=== PATIENT | female | born 1950 | race Caucasian/White ===

== ENCOUNTER 2016-09-02 15:14 | Inpatient (IN) | payer OTHER ==
[2016-09-02 16:08] VITALS: BMI 31.1
--- NOTE | 2016-09-02 17:28 | HP ---
CIWA Score - CIWA Score Nausea/Vomitin Muscle Tremors: 2 Anxiety: 2 Agitation: 2 Paroxysmal Sweats: 3 Orientation: 0-Oriented Tacttile Disturbances: 0-None Auditory Disturbances: 0-None Visual Disturbances: 0-None Headache: 2-Mild CIWA-Ar Total Score: 14 Admission ROS BHS - HPI Chief Complaint: MY DAUGHTER BROUGHT ME HERE BECAUSE I WAS DRINKING Allergies/Adverse Reactions: Allergies Allergy/AdvReac Type Severity Reaction Status Date / Time No Known Allergies Allergy Verified 09/02/16 13:36 History of Present Illness: 65 Y/O WOMAN WITH 15 YRS OF ALCOHOLISM PRESENTS WITH DAUGHTER FOR DETOX. SHE REPORTS LAST TREATMENT ABOUT A YEAR AGO IN [place]. Exam Limitations: No Limitations - Ebola screening Have you traveled outside of the country in the last 21 days: No Have you had contact with anyone from an Ebola affected area: No Have you been sick,other than usual withdrawal symptoms: No Do you have a fever: No - Review of Systems Constitutional: Loss of Appetite, Changes in sleep EENT: reports: Blurred Vision Respiratory: reports: Cough Cardiac: reports: Lightheadedness GI: reports: Poor Appetite, Abdominal cramping : reports: No Symptoms Reported Musculoskeletal: reports: Muscle Pain Integumentary: reports: No Symptoms Reported Neuro: reports: Headache Endocrine: reports: No Symptoms Reported Hematology: reports: No Symptoms Reported Psychiatric: reports: Anxious, Depressed Other Systems: Reviewed and Negative Patient History - Patient Medical History Hx Anemia: No Hx Asthma: No Hx Chronic Obstructive Pulmonary Disease (COPD): Yes Hx Cancer: No Hx Cardiac Disorders: No Hx Congestive Heart Failure: No Hx Hypertension: Yes Hx Hypercholesterolemia: No Hx Pacemaker: No HX Cerebrovascular Accident: No Hx Seizures: No Hx Dementia: No Hx Diabetes: No Hx Gastrointestinal Disorders: No Hx Liver Disease: Yes (HEPATOMEGALY) Hx Genitourinary Disorders: No Hx Sexually Transmitted Disorders: No Hx Renal Disease (ESRD): No Hx Thyroid Disease: No Hx Human Immunodeficiency Virus (HIV): No Hx Hepatitis C: No Hx Depression: Yes (on med) Hx Suicide Attempt: No Hx Schizophrenia: No - Patient Surgical History Past Surgical History: Yes Hx Abdominal Surgery: Yes Hx Orthopedic Surgery: Yes (FX RT ANKLE-PINS) Hx Hysterectomy: Yes (PARTIAL) Other Surgical History: Partial hysterectomy Anesthesia Reaction: No - PPD History Previous Implant?: Yes Implanted On Prior R Admission?: Yes Date: 01/09/12 Results: 0 mm PPD to be Administered?: Yes - Smoking Cessation Smoking history: Current every day smoker Have you smoked in the past 12 months: Yes Aproximately how many cigarettes per day: 20 Hx Chewing Tobacco Use: No Initiated information on smoking cessation: Yes 'Breaking Loose' booklet given: 09/02/16 Family Disease History - Family Disease History Family Disease History: Diabetes: Mother, Heart Disease: Father Admission Physical Exam [facility] - Vital Signs Vital Signs: Vital Signs - 24 hr 09/02/16 16:06 Temperature 97.0 F L Pulse Rate 110 H Respiratory 22 Rate Blood Pressure 134/82 - Physical General Appearance: Yes: Alcohol on Breath HEENTM: Yes: EOMI, Hearing grossly Normal, Normocephalic, Normal Voice Respiratory: Yes: Chest Non-Tender, Normal Breath Sounds, No Respiratory Distress, No Accessory Muscle Use Neck: Yes: No masses,lesions,Nodules, Supple Breast: Yes: Breast Exam Deferred Cardiology: Yes: Regular Rhythm, Regular Rate, S1, S2 Abdominal: Yes: Normal Bowel Sounds, Soft Genitourinary: Yes: Within Normal Limits Back: Yes: Normal Inspection Musculoskeletal: Yes: Gait Steady, Pelvis Stable Extremities: Yes: Normal Inspection, Normal Range of Motion Neurological: Yes: edge brusher II-XII NML intact, Alert, Normal Mood/Affect, Normal Response Integumentary: Yes: Clammy Lymphatic: Yes: Within Normal Limits - Diagnostic (1) Essential hypertension Current Visit: Yes Status: Chronic (2) Alcohol dependence with uncomplicated withdrawal Current Visit: Yes Status: Acute (3) Nicotine dependence Current Visit: Yes Status: Acute Qualifiers: Nicotine product type: cigarettes Substance use status: uncomplicated Qualified Code(s): F17.210 - Nicotine dependence, cigarettes, uncomplicated (4) COPD (chronic obstructive pulmonary disease) Current Visit: Yes Status: Chronic Qualifiers: COPD type: chronic bronchitis Chronic bronchitis type: simple Qualified Code(s): J41.0 - Simple chronic bronchitis Cleared for Admission [facility] - Detox or Rehab [facility] Level of Care: Medically Managed Detox Regimen/Protocol: Librium [facility] Breath Alcohol Content Breath Alcohol Content: 0.049 Urine Pregancy Test - Result Urine Test Results: Negative- NO Line Present Urine Drug Screen - Results Drug Screen Negative: Yes
[2016-09-02] MEDS ORDERED: MAGNESIUM CITRATE 300 ML BOTTLE PO PRN (17:35)
[2016-09-02] MEDS ORDERED: LOPERAMIDE HCL 2 MG CAPSULE PO PRN (17:35)
[2016-09-02] MEDS ORDERED: IBUPROFEN 400 MG TABLET (FP) PO PRN (17:35)
[2016-09-02] MEDS ORDERED: guaiFENesin/D-METHORPHAN HB 10 ML UNIT-DOSE CUPS PO PRN (17:35)
[2016-09-02] MEDS ORDERED: P-EPHED 60MG/TRIPROLIDI 2.5MG TABLET PO PRN (17:35)
[2016-09-02] MEDS ORDERED: MENTHOL/PHENOL 1 EACH UD MM PRN (17:35)
[2016-09-02] MEDS ORDERED: chlordiazePOXIDE HCL 25 MG CAPSULE PO PRN (17:35)
[2016-09-02] MEDS ORDERED: chlordiazePOXIDE HCL 25 MG CAPSULE PO ONE (17:35)
[2016-09-02] MEDS ORDERED: ACETAMINOPHEN 325 MG TABLET (FP) PO PRN (17:35)
[2016-09-02] MEDS ORDERED: MAGNESIUM HYDROX 2400MG/30ML ORAL SUSPENSION 30 ML CUP PO PRN (17:35)
[2016-09-02] MEDS ORDERED: hydrOXYzine PAMOATE 50 MG CAPSULE (FP) PO PRN (17:35)
[2016-09-02] MEDS ORDERED: diphenhydrAMINE HCL 50 MG CAPSULE PO PRN (17:35)
[2016-09-02] MEDS ORDERED: NICOTINE POLACRILEX 2 MG GUM BC PRN (17:35)
[2016-09-02] MEDS ORDERED: MAG HYDROX/AL HYDROX/SIMETH 30 ML UNIT-DOSE CUP PO PRN (17:35)
[2016-09-02] MEDS: NICOTINE 14 MG/24 HOURS TOPICAL PATCH TD SCH (18:44)
[2016-09-02] MEDS: THIAMINE HCL 100 MG TABLET (FP) PO SCH (22:30)
[2016-09-02] MEDS: chlordiazePOXIDE HCL 25 MG CAPSULE PO SCH (22:31)
[2016-09-02] MEDS ORDERED: METOPROLOL TARTRATE 50 MG TABLET (FP) PO ONE (22:43)
[2016-09-03] MEDS: chlordiazePOXIDE HCL 25 MG CAPSULE PO SCH ×4 (06:00→22:19)
[2016-09-03 09:50] LABS: MCH 33.1 pg (25.7-33.7); MCHC 33.9 g/dl (32.0-36.0); MEAN CELL VOLUME 97.5 fl (80-96); MEAN PLT VOLUME 7.9 fl (7.5-11.1); PLATELET COUNT 219 K/MM3 (134-434); RDW 13.9 % (11.6-15.6); WHITE BLOOD COUNT 6.5 K/mm3 (4.0-10.0)
[2016-09-03] MEDS ORDERED: PRENATAL VITAMINS W/ FOLIC ACID TABLET (FP) PO SCH (10:00)
[2016-09-03] MEDS ORDERED: ASPIRIN COATED 81 MG TABLET.EC PO SCH (10:00)
[2016-09-03] MEDS ORDERED: METOPROLOL SUCCINATE 50 MG TAB.SR.24H (FP) PO SCH (10:00)
[2016-09-03] MEDS: NICOTINE 14 MG/24 HOURS TOPICAL PATCH TD SCH (10:36)
[2016-09-03 10:56] LABS: CREATININE 0.5 mg/dL (0.55-1.02); GLUCOSE,RANDOM 91 mg/dL (74-106)
[2016-09-03 10:57] LABS: ALBUMIN 3.4 g/dl (3.4-5.0); ALK PHOS 97 U/L (45-117); ANION GAP 9 (8-16); BILIRUBIN,TOTAL 0.4 mg/dL (0.2-1.0); CALCIUM 8.7 mg/dL (8.5-10.1); CO2 27 mmol/L (21-32); SGOT/AST 19 U/L (15-37); SGPT/ALT 27 U/L (12-78); TOT PROT 6.5 g/dl (6.4-8.2)
--- NOTE | 2016-09-03 11:32 | PN ---
S CIWA - CIWA Score Nausea/Vomitin Muscle Tremors: 4-Moderate,w/Arms Extend Anxiety: 4-Mod. Anxious/Guarded Agitation: 4-Moderately Restless Paroxysmal Sweats: 3 Orientation: 0-Oriented Tacttile Disturbances: 1-Very Mild Itch/Numbness Auditory Disturbances: 0-None Visual Disturbances: 0-None Headache: 1-Very Mild CIWA-Ar Total Score: 20 BHS Progress Note (SOAP) Subjective: nausea, sweats, interrupted sleep, anxiety, tremor Objective: 09/03/16 11:31 Vital Signs - 8 hr 09/03/16 09/03/16 06:00 11:02 Temperature 98.1 F 98.4 F Pulse Rate 75 103 H Respiratory 18 18 Rate Blood Pressure 139/75 171/95 Laboratory Tests 09/03/16 09/03/16 07:45 07:45 WBC 6.5 RBC 4.53 Hgb 15.0 Hct 44.2 MCV 97.5 H MCHC 33.9 RDW 13.9 Plt Count 219 MPV 7.9 Sodium 140 Potassium 4.5 Chloride 104 Carbon Dioxide 27 Anion Gap 9 BUN 10 D Creatinine 0.5 L Creat Clearance w eGFR > 60 Random Glucose 91 Calcium 8.7 Total Bilirubin 0.4 D AST 19 D ALT 27 D Alkaline Phosphatase 97 Total Protein 6.5 Albumin 3.4 D Assessment: 09/03/16 11:31 withdrawal sx, labs still pending Plan: cont detox, encourage fluids/ambulation
[2016-09-03 17:27] LABS: URINE APPEARANCE SLCLOUDY; URINE BILIRUBIN NEGATIVE (NEGATIVE); URINE BLOOD NEGATIVE (NEGATIVE); URINE COLOR LTYELLOW; URINE GLUCOSE (UA) NEGATIVE (NEGATIVE); URINE KETONE NEGATIVE (NEGATIVE); URINE NITRITE NEGATIVE (NEGATIVE); URINE PROTEIN NEGATIVE (NEGATIVE); URINE UROBILINOGEN NEGATIVE E.U./dl (0.2-1.0)
[2016-09-03 17:29] LABS: URINE LEUK ESTERASE TRACE (NEGATIVE)
[2016-09-03 17:32] LABS: URINE MUCUS RARE; URINE RBC <1 /hpf (0-3); URINE WBC 2 /hpf (3-5)
[2016-09-03] MEDS: THIAMINE HCL 100 MG TABLET (FP) PO SCH (22:19)
--- NOTE | 2016-09-03 23:27 | EKG ---
Test Reason : Blood Pressure : / mmHG Vent. Rate : 103 BPM Atrial Rate : 103 BPM P-R Int : 126 ms QRS Dur : 082 ms QT Int : 352 ms P-R-T Axes : 076 057 061 degrees QTc Int : 461 ms SINUS TACHYCARDIA POSSIBLE LEFT ATRIAL ENLARGEMENT BORDERLINE ECG WHEN COMPARED WITH ECG OF 17-JAN-2012 10:35, NO SIGNIFICANT CHANGE WAS FOUND Confirmed by SO SALES MD ([id number]) on 09/03/2016 11:26:51 PM Referred By: Confirmed By:SO SALES MD
[2016-09-04 06:33] VITALS: BP 144/69; PULSE 75; TEMP 95.9
[2016-09-04] MEDS: chlordiazePOXIDE HCL 25 MG CAPSULE PO SCH (06:55)
--- NOTE | 2016-09-04 10:45 | PN ---
[facility] Progress Note Note: my daugter brought me in i only drank a glass of wine and i dont need to be here. i am signing out.
--- NOTE | 2016-09-04 10:46 | DS ---
[facility] Detox Discharge Summary Admission Date: 09/02/16 - History Present History: Alcohol Dependence - Physical Exam Results Vital Signs: Vital Signs Temperature 95.9 F L 09/04/16 06:00 Pulse Rate 75 09/04/16 06:00 Respiratory Rate 18 09/04/16 06:00 Blood Pressure 144/69 09/04/16 06:00 O2 Sat by Pulse Oximetry (%) - Medication Discharge Medications: Ambulatory Orders Aspirin Coated [Ecotrin -] 81 mg PO DAILY 08/27/12 Fluoxetine HCl [Prozac -] 60 mg PO DAILY 08/27/12 Metoprolol Succinate [Toprol XL -] 25 mg PO BID 08/27/12 - Diagnosis (1) Alcohol dependence with uncomplicated withdrawal Status: Chronic (2) Nicotine dependence Status: Chronic Qualifiers: Nicotine product type: cigarettes Substance use status: uncomplicated Qualified Code(s): F17.210 - Nicotine dependence, cigarettes, uncomplicated (3) COPD (chronic obstructive pulmonary disease) Status: Chronic Qualifiers: COPD type: chronic bronchitis Chronic bronchitis type: simple Qualified Code(s): J41.0 - Simple chronic bronchitis (4) Essential hypertension Status: Chronic (5) Syncope Status: Active (6) s/p partial hysterectomy for bladder retention Status: Chronic - AMA Did Patient Leave Against Medical Advice: Yes
[2016-09-04] MEDS ORDERED: chlordiazePOXIDE 5 MG CAPSULE PO SCH (23:00)
[2016-09-05] MEDS ORDERED: chlordiazePOXIDE HCL 10 MG CAPSULE PO SCH (23:00)
== END 2016-09-04 09:48 | disposition left against medical advice (07) | DRG 894 ==
LOC: YASAS 15:14 → Y6N 17:54
PROVIDERS: ADMIT Internal Medicine; ATTEND Internal Medicine Addiction Medicine
PROC: HZ2ZZZZ Detoxification Services for Substance Abuse Treatment (ICD-10-PCS; principal; 2016-09-02)
DX: F19.230 Other psychoactive substance dependence with withdrawal, uncomplicated (principal); F10.230 Alcohol dependence with withdrawal, uncomplicated; F17.210 Nicotine dependence, cigarettes, uncomplicated; J41.0 Simple chronic bronchitis; I10 Essential (primary) hypertension; R16.0 Hepatomegaly, not elsewhere classified; Z86.79 Personal history of other diseases of the circulatory system; Z90.711 Acquired absence of uterus with remaining cervical stump
CPT/HCPCS: 36415; 80053; 81003; 81015; 85027; 86593; 93005; 93010; 99281-25